=== PATIENT | male | born 1970 | race African-American/Black ===

== ENCOUNTER 2017-07-18 23:11 | Emergency (ER) | payer OTHER ==
[~2017-07-18] VITALS: Ht 182.9 cm; Wt 113.6 kg
[~2017-07-18 23:11] MED LIST: QUET400T PO; QUET400T11 PO
[2017-07-18 23:14] VITALS: Ht 182.9 cm; Wt 113.6 kg
[2017-07-18] MEDS ORDERED: LIDOCAINE/MYLANTA 40 ML BTL PO ONE (23:30)
[2017-07-18] MEDS ORDERED: ACET325T33 PO (23:33)
[2017-07-18] MEDS ORDERED: RANI150T9 PO (23:34)
--- NOTE | 2017-07-18 23:48 | ERD ---
ER Documentation Chief Complaint Date/Time DATE: 07/18/17 TIME: 23:36 Chief Complaint sudden onset lower mid-ap , reports eating something that didn't agree HPI This 47-year-old male comes comes in complaining of midabdominal pain after he ate 2 cheeseburgers and 2 hotdogs. He states that he drank a little Daniel Elías earlier in the day he does not think this combination agrees with him. Denies being intoxicated. States that he wants Dilaudid. He does not have a history of abdominal surgery. He denies nausea vomiting fever and chills. ROS All systems reviewed and are negative except as per history of present illness. Medications Home Meds Active Scripts Ranitidine Hcl* (Zantac*) 150 Mg Tablet, 150 MG PO BID Y for EPIGASTRIC PAIN, # 30 TAB Prov:SOFIA ROMERO DO 07/18/17 Acetaminophen* (Tylenol*) 325 Mg Tablet, 1 TAB PO Q6 Y for PAIN AND OR ELEVATED TEMP, #7 TAB Prov:SOFIA ROMERO DO 07/18/17 Quetiapine Fumarate* (Seroquel*) 400 Mg Tablet, 400 MG PO HS, #20 TAB Prov:FRIEDA COBURN MD 09/08/16 Reported Medications Quetiapine Fumarate* (Quetiapine Fumarate*) 400 Mg Tablet, 400 MG PO BID, TAB 09/04/16 Allergies Allergies: Coded Allergies: No Known Allergy (Unverified , 09/04/16) PMhx/Soc Hx Psychiatric Problems: Yes (Bipolar, Schizophrenia) Hx Alcohol Use: Yes Hx Substance Use: No Hx Tobacco Use: Yes Physical Exam Vitals Vital Signs Date Time Temp Pulse Resp B/P Pulse Ox O2 Delivery O2 Flow Rate FiO2 07/18/17 23:14 99.0 115 22 133/77 97 Physical Exam Const: [] No distress, smiling, pleasant Head: Atraumatic Eyes: Normal Conjunctiva ENT: Normal External Ears, Nose and Mouth. Neck: Full range of motion..~ No meningismus. Resp: Clear to auscultation bilaterally Cardio: Regular Tachycardia, no murmurs Abd: Soft, No tenderness on palpation with stethoscope, when I switched to my hand in the same spot the patient complained of some pain that was mild tenderness but mild and no guarding or rebound,, non distended. Normal bowel sounds Skin: No petechiae or rashes Back: No midline or flank tenderness Ext: No cyanosis, or edema Neur: Awake and alert oriented 3, no focal deficits Psych: Normal Mood and Affect Results 24 hrs Current Medications Medications (Trade) Dose Ordered Sig/Lissette Route PRN Reason Start Time Stop Time Status Last Admin Dose Admin Miscellaneous Medication (Gi Cocktail (2)) 40 ml ONCE ONCE PO 07/18/17 23:30 07/18/17 23:31 DC Procedures/MDM Patient called 911 for indigestion after eating after overeating junk food. Also had drank Tequila early in the day. He has no signs of distress is pleasant and smiling as he states that he needs Dilaudid. He is mildly tachycardic but has no chest pain. Is positive from drinking alcohol being dehydrated. I rechecked his pulse and it was 98 prior to discharge. Seen in his given a GI cocktail which helped reduce his pain. Benign abdominal exam.I still do suspect drug-seeking this patient. The other ER physician on duty states that she has seen this patient several times at different hospital which she was request pain medication through an IV. Departure Diagnosis: Primary Impression: Abdominal pain Additional Impression: Drug-seeking behavior Condition: Stable Patient Instructions: Abdominal Pain Referrals: [facility] YOU HAVE RECEIVED A MEDICAL SCREENING EXAM AND THE RESULTS INDICATE THAT YOU DO NOT HAVE A CONDITION THAT REQUIRES URGENT TREATMENT IN THE EMERGENCY DEPARTMENT. FURTHER EVALUATION AND TREATMENT OF YOUR CONDITION CAN WAIT UNTIL YOU ARE SEEN IN YOUR DOCTORS OFFICE WITHIN THE NEXT 1-2 DAYS. IT IS YOUR RESPONSIBILITY TO MAKE AN APPOINTMENT FOR FOLOW-UP CARE. IF YOU HAVE A PRIMARY DOCTOR --you should call your primary doctor and schedule an appointment IF YOU DO NOT HAVE A PRIMARY DOCTOR YOU CAN CALL OUR PHYSICIAN REFERRAL HOTLINE AT IF YOU CAN NOT AFFORD TO SEE A PHYSICIAN YOU CAN CHOSE FROM THE FOLLOWING [facility] [address] [place] [facility] [address] [facility] [address] [facility] [address] [facility] [address] [facility] [address] Additional Instructions: Call your primary care doctor TOMORROW for an appointment during the next 1-2 days.See the doctor sooner or return here if your condition worsens before your appointment time. SOFIA ROMERO DO Jul 18, 2017 23:47
[2017-07-19 00:41] VITALS: BP 145/79; PULSE 108; RESP 14; TEMP 98.7
== END 2017-07-19 00:43 | disposition home or self-care (01) ==
LOC: E/R 23:11
DX: R10.30 Lower abdominal pain, unspecified (principal); Z76.5 Malingerer [conscious simulation]; Z87.891 Personal history of nicotine dependence
CPT/HCPCS: Z7502; Z7610; 99283

== ENCOUNTER 2017-10-15 23:01 | Emergency (ER) | payer OTHER ==
[~2017-10-15] VITALS: Ht 175.3 cm; Wt 100.0 kg
[~2017-10-15 23:01] MED LIST changes: +ACET325T33 PO; +RANI150T9 PO
[2017-10-15 23:05] VITALS: Ht 175.3 cm; Wt 100.0 kg
--- NOTE | 2017-10-15 23:05 | ERD ---
ER Documentation Chief Complaint Chief Complaint Suicidal ideation HPI The patient is a 46-year-old male, presenting to the ER because of suicidal ideation. He was waiting at the bus stop and did not feel well, he therefore called 911 to bring him to the hospital. He does not have any plan, denies auditory/visual hallucination/homicidal ideation. He is noncompliant with his medication, denies headache, fever, complains of vague abdominal discomfort and vomiting, denied dysuria, diarrhea, constipation. He smokes and drinks, denies illicit drug Past medical history: Bipolar disorder, schizoaffective, Depression, Anxiety, HTN Past surgical history: None ROS All systems reviewed and are negative except as per history of present illness. Medications Home Meds Reported Medications Quetiapine Fumarate* (Quetiapine Fumarate*) 400 Mg Tablet, 400 MG PO BID, TAB 09/04/16 Discontinued Scripts Ranitidine Hcl* (Zantac*) 150 Mg Tablet, 150 MG PO BID Y for EPIGASTRIC PAIN, # 30 TAB Prov:SOFIA ROMERO DO 07/18/17 Acetaminophen* (Tylenol*) 325 Mg Tablet, 1 TAB PO Q6 Y for PAIN AND OR ELEVATED TEMP, #7 TAB Prov:SOFIA ROMERO DO 07/18/17 Quetiapine Fumarate* (Seroquel*) 400 Mg Tablet, 400 MG PO HS, #20 TAB Prov:FRIEDA COBURN MD 09/08/16 Allergies Allergies: Coded Allergies: No Known Allergy (Unverified , 10/15/17) PMhx/Soc History of Surgery: No Anesthesia Reaction: No Hx Neurological Disorder: No Hx Respiratory Disorders: No Hx Cardiac Disorders: No Hx Psychiatric Problems: Yes (Bipolar, Schizophrenia) Hx Miscellaneous Medical Probl: No Hx Alcohol Use: Yes Hx Substance Use: No Hx Tobacco Use: Yes Physical Exam Vitals Vital Signs Date Time Temp Pulse Resp B/P Pulse Ox O2 Delivery O2 Flow Rate FiO2 10/15/17 23:05 98.6 106 18 137/103 100 Physical Exam Const: No acute distress. Head: Atraumatic. Eyes: Normal Conjunctiva. ENT: Normal External Ears, Nose and Mouth. Neck: Full range of motion. No meningismus. Resp: Clear to auscultation bilaterally. Cardio: Regular tachycardic Abd: Soft, non distended, normal bowel sounds, non tender. Skin: No petechiae or rashes. Back: No midline or flank tenderness. Ext: No cyanosis, or edema. Neur: Awake and alert. No focal deficit Psych: Suicidal Result Diagram: 10/15/17231910/15/172319 Results 24 hrs Laboratory Tests Test 10/15/17 23:20 10/16/17 00:40 White Blood Count 8.810^3/ul Red Blood Count 4.6610^6/ul Hemoglobin 14.3g/dl Hematocrit 43.0% Mean Corpuscular Volume 92.3fl Mean Corpuscular Hemoglobin 30.7pg Mean Corpuscular Hemoglobin Concent 33.3g/dl Red Cell Distribution Width 12.8% Platelet Count 10605^3/UL Mean Platelet Volume 10.7fl Neutrophils % 59.7% Lymphocytes % 29.8% Monocytes % 8.5% Eosinophils % 1.5% Basophils % 0.3% Nucleated Red Blood Cells % 0.0/100WBC Neutrophils # 5.310^3/ul Lymphocytes # 2.610^3/ul Monocytes # 0.810^3/ul Eosinophils # 0.110^3/ul Basophils # 0.010^3/ul Nucleated Red Blood Cells # 0.010^3/ul Sodium Level 141mmol/L Potassium Level 3.1mmol/L Chloride Level 103mmol/L Carbon Dioxide Level 20mmol/L Anion Gap 21 Blood Urea Nitrogen 9mg/dl Creatinine 0.95mg/dl Glucose Level 92mg/dl Calcium Level 9.1mg/dl Total Bilirubin 0.3mg/dl Direct Bilirubin 0.00mg/dl Indirect Bilirubin 0.3mg/dl Aspartate Amino Transf (AST/SGOT) 53IU/L Alanine Aminotransferase (ALT/SGPT) 63IU/L Alkaline Phosphatase 117IU/L Troponin I < 0.012ng/ml Total Protein 7.9g/dl Albumin 4.7g/dl Globulin 3.20g/dl Albumin/Globulin Ratio 1.46 Salicylates Level 18.7mg/dl Acetaminophen Level < 10.0ug/ml Ethyl Alcohol Level 186.0mg/dl Urine Color YELLOW Urine Clarity CLEAR Urine pH 5.0 Urine Specific [place] 1.011 Urine Ketones NEGATIVEmg/dL Urine Nitrite NEGATIVEmg/dL Urine Bilirubin NEGATIVEmg/dL Urine Urobilinogen NEGATIVEmg/dL Urine Leukocyte Esterase NEGATIVELeu/ul Urine Hemoglobin NEGATIVEmg/dL Urine Glucose NEGATIVEmg/dL Urine Total Protein NEGATIVEmg/dl Urine Opiates Screen Negative Urine Barbiturates Negative Urine Amphetamines Screen Negative Urine Benzodiazepines Screen Negative Urine Cocaine Screen Negative Urine Cannabinoids Negative Current Medications Medications (Trade) Dose Ordered Sig/Lissette Route PRN Reason Start Time Stop Time Status Last Admin Dose Admin Ondansetron HCl (Zofran Odt) 4 mg ONCE STAT ODT 10/16/17 00:27 10/16/17 00:28 DC 10/16/17 01:15 Ibuprofen (Motrin) 600 mg ONCE ONCE PO 10/16/17 00:30 10/16/17 00:31 DC Potassium Chloride (Klor-Con 20) 40 meq ONCE ONCE PO 10/16/17 00:52 10/16/17 00:53 DC Procedures/MDM EKG: Read by emergency physician Rate/Rhythm: sinus tachy 111 beats/min QRS, ST, T-waves: No ST elevation, no T inversion, LAD, RBBB Impression: Abnormal EKG MEDICAL MAKING DECISION: The patient is a 47-year-old male, presenting with acute suicidal ideation, acute alcohol intoxication, acute hypokalemia. He was treated with Zofran ODT for nausea, Motrin for his discomfort and potassium chloride 40 mEq p.o. for acute hypokalemia with good response. The differential diagnoses considered include but are not limited to psychosis, drug-induced psychosis, alcohol intoxication, medical noncompliance, anxiety attack, panic attack, decompensated psychiatric illness Departure Diagnosis: Primary Impression: Suicidal ideation Additional Impressions: Alcohol abuse Hypokalemia Condition: Stable Comments He was evaluated by the telepsychiatrist Dr. Echevarria who put him on 5150 hold LASHELL SANCHES MD Oct 15, 2017 23:05
[2017-10-16 00:03] LABS: BASOPHILS % 0.3 % (0.0-2.0); EOSINOPHILS # 0.1 10^3/ul (0.0-0.5); EOSINOPHILS % 1.5 % (0.0-7.0); HEMOGLOBIN 14.3 g/dl (14.0-18.0); LYMPHOCYTES # 2.6 10^3/ul (0.8-2.9); LYMPHOCYTES % 29.8 % (15.0-51.0); MEAN CORPUSCULAR HEMOGLOBIN 30.7 pg (29.0-33.0); MEAN CORPUSCULAR HGB CONC 33.3 g/dl (32.0-37.0); MEAN CORPUSCULAR VOLUME 92.3 fl (82.0-101.0); MEAN PLATELET VOLUME 10.7 fl (7.4-10.4); MONOCYTE # 0.8 10^3/ul (0.3-0.9); MONOCYTES % 8.5 % (0.0-11.0); NEUTROPHIL # 5.3 10^3/ul (1.6-7.5); NEUTROPHILS % 59.7 % (39.0-77.0); PLATELET COUNT 275 10^3/UL (140-415); RED BLOOD COUNT 4.66 10^6/ul (4.70-6.10); RED CELL DISTRIBUTION WIDTH 12.8 % (11.5-14.5); WHITE BLOOD COUNT 8.8 10^3/ul (4.8-10.8)
--- NOTE | 2017-10-16 00:11 | RADRPT ---
PROCEDURE: Portable chest x-ray. CLINICAL INDICATION: Chest pain. TECHNIQUE: Portable AP view of the chest. COMPARISON: None. FINDINGS: No pulmonary edema or conolidation is identified. The cardiac silhouette is magnified. No pleural effusion is seen. There is no pneumothorax. IMPRESSION: 1. No evidence of acute cardiopulmonary disease. RPTAT: HTAR .Oseas Ny MD, MD Date Time Electronically viewed and signed by .Oseas Ny MD, on 10/16/2017 00:10 .R/
[2017-10-16] MEDS ORDERED: ONDANSETRON (ODT) 4 MG TAB ODT STA (00:27)
[2017-10-16 00:28] LABS: ALANINE AMINOTRANSFERASE 63 IU/L (13-69); ALBUMIN 4.7 g/dl (3.3-4.9); ALBUMIN/GLOBULIN RATIO 1.46; ALKALINE PHOSPHATASE 117 IU/L (42-121); ANION GAP 21 (8-16); ASPARTATE AMINO TRANSFERASE 53 IU/L (15-46); BILIRUBIN,INDIRECT 0.3 mg/dl (0-1.1); BILIRUBIN,TOTAL 0.3 mg/dl (0.2-1.3); BLOOD UREA NITROGEN 9 mg/dl (7-20); CALCIUM 9.1 mg/dl (8.4-10.2); CARBON DIOXIDE 20 mmol/L (21-31); CHLORIDE 103 mmol/L (97-110); CREATININE 0.95 mg/dl (0.61-1.24); GLUCOSE 92 mg/dl (70-220); POTASSIUM 3.1 mmol/L (3.5-5.1); SALICYLATE 18.7 mg/dl (5.0-30.0); SODIUM 141 mmol/L (135-144); TOTAL PROTEIN 7.9 g/dl (6.1-8.1)
[2017-10-16 00:42] LABS: TROPONIN-I < 0.012 ng/ml (0.00-0.12)
[2017-10-16 00:58] LABS: ACETAMINOPHEN < 10.0 ug/ml (10.0-30.0)
[2017-10-16] MEDS: IBUPROFEN 600 MG TAB PO ONE ×2 (01:15→01:37)
[2017-10-16] MEDS: POTASSIUM CHLORIDE (SR) 20 MEQ TAB PO ONE ×2 (01:15→01:37)
--- NOTE | 2017-10-16 01:17 | PSY ---
Date/Time of Note Date/Time of Note DATE: 10/16/17 TIME: 01:01 Psychiatric Subjective Eval Consent Pt consented to telemedicine: Yes Subjective Evaluation Patient location: emergency Chief Complaint: bib ra 39 for possible stemi, cp, and si History of present illness patient is a 47 yo male with PPH Of bipolar do who came to the ER due to chest pain and suicidal ideation, he says that he wants to jump into traffic, he has a hx of suicidal attempt . Patient states that he has been feeling depressed, hopeless and helpless for more than 2 weeks because his 2 good friends , he has not been able to sleep for days, feeling anxious, and sad all the time, he has been having severe chest pain today with anxiety and so he came to the ER, he denies any current manic or psychotic symptoms but he used to hear voices, he does remember the name of his medication. denies any HI, still feeling suicidal. denies any drug use, but drinking alcohol heavily. Past psychiatric history past suicidal attempt Hospitalization: yes Family History denies Medical history Problems Medical Problems: (1) Abdominal pain Status: Acute (2) Alcoholic intoxication Status: Acute (3) Drug-seeking behavior Status: Acute (4) Long QT interval syndrome Status: Acute (5) Suicidal ideation Status: Acute Allergies: Coded Allergies: No Known Allergy (Unverified , 10/15/17) Substance Abuse Substance abuse history: Yes (alcohol ) Prior substance abuse treatmen: No Social History Marital status: single Level of education: hs DPA/Conservatorship: No Occupation/Alf: no Psychiatric Objective Eval Review of Systems: Review of Systems: Not Applicable Physical Examination: Physical Examination: Applicable Sleep: Insomnia Appetite: Decreased Energy: Decreased Interest: Decreased Mental Status Examination: Appearance: Groomed, Disheveled Eye Contact: Good Psychomotor Activity: Normal Behavior: Cooperative Speech: Clear AFFECT: Depressed Mood: Depressed Though Process: Linear Thought Content: Normal Suicidal: Yes Homicidal: No On 72 hour hold: No Orientation: x3 Cognition: Alert Insight: Impared Judgement: Impared Attention Span: Intact Laboratory Results Laboratory Tests Test 10/15/17 23:20 White Blood Count 8.810^3/ul Red Blood Count 4.6610^6/ul Hemoglobin 14.3g/dl Hematocrit 43.0% Mean Corpuscular Volume 92.3fl Mean Corpuscular Hemoglobin 30.7pg Mean Corpuscular Hemoglobin Concent 33.3g/dl Red Cell Distribution Width 12.8% Platelet Count 77646^3/UL Mean Platelet Volume 10.7fl Neutrophils % 59.7% Lymphocytes % 29.8% Monocytes % 8.5% Eosinophils % 1.5% Basophils % 0.3% Nucleated Red Blood Cells % 0.0/100WBC Neutrophils # 5.310^3/ul Lymphocytes # 2.610^3/ul Monocytes # 0.810^3/ul Eosinophils # 0.110^3/ul Basophils # 0.010^3/ul Nucleated Red Blood Cells # 0.010^3/ul Sodium Level 141mmol/L Potassium Level 3.1mmol/L Chloride Level 103mmol/L Carbon Dioxide Level 20mmol/L Anion Gap 21 Blood Urea Nitrogen 9mg/dl Creatinine 0.95mg/dl Glucose Level 92mg/dl Calcium Level 9.1mg/dl Total Bilirubin 0.3mg/dl Direct Bilirubin 0.00mg/dl Indirect Bilirubin 0.3mg/dl Aspartate Amino Transf (AST/SGOT) 53IU/L Alanine Aminotransferase (ALT/SGPT) 63IU/L Alkaline Phosphatase 117IU/L Troponin I < 0.012ng/ml Total Protein 7.9g/dl Albumin 4.7g/dl Globulin 3.20g/dl Albumin/Globulin Ratio 1.46 Salicylates Level 18.7mg/dl Acetaminophen Level < 10.0ug/ml Ethyl Alcohol Level 186.0mg/dl Assessment and Plan Assessment/Diagnosis [place] I: bipolar do current episode depressed severe without psychotic symptoms r.o alcohol abuse [place] II: deferred [place] III: chest pain [place] IV: poor social support [place] V: gaf 25 Recommendation/Plan Medication Management ativan 1 mg po tid Follow-up/Disposition Please admit patient on unvoluntary status due to Danger to self, In my opinion, patient currently MEETS criterion for inpatient care and CANNOT be safely treated ~at a lower level of care today as evidenced by the following risk factors: ~Current and Recent Suicidal Ideation Previous suicide attempt and~ severe self-destructive behavior Intense feelings of hopelessness and lack of future orientation. Significant recent DETERIORATION in function, behavior and thought processes Substance ABUSE in conjunction with another psychiatric disorder Non-Compliance with Outpatient Treatment Patient has failed outpatient and requires further inpatient assessment Medication changes require observation unavailable at a lower level of care. 5150 Recommendation: JOSSY Torres MD Oct 16, 2017 01:13
[2017-10-16 01:45] LABS: ADD UMIC NO; UR ASCORBIC ACID NEGATIVE (NEGATIVE); UR BILIRUBIN (Dip) NEGATIVE (NEGATIVE); UR BLOOD (Dip) NEGATIVE (NEGATIVE); UR CLARITY CLEAR (CLEAR); UR COLOR YELLOW (YELLOW); UR GLUCOSE (Dip) NEGATIVE (NEGATIVE); UR KETONES (Dip) NEGATIVE (NEGATIVE); UR LEUKOCYTE ESTERASE (Dip) NEGATIVE Leu/ul (NEGATIVE); UR NITRITE (Dip) NEGATIVE (NEGATIVE); UR SPECIFIC GRAVITY (Dip) 1.011 (1.003-1.030); UR TOTAL PROTEIN (Dip) NEGATIVE (NEGATIVE); UR UROBILINOGEN (Dip) NEGATIVE (NEGATIVE)
[2017-10-16 02:09] LABS: BARBITURATES Negative (NEGATIVE); BENZODIAZEPINES Negative (NEGATIVE); CANNABINOIDS Negative (NEGATIVE); COCAINE Negative (NEGATIVE); OPIATES Negative (NEGATIVE)
[2017-10-16] MEDS ORDERED: HYDROCODONE/APAP (10/325) TAB PO ONE (07:00)
[2017-10-16 08:16] VITALS: BP 154/91; PULSE 91; RESP 17; TEMP 98.1
== END 2017-10-16 09:05 ==
LOC: E/R 23:01
DX: R45.851 Suicidal ideations (principal); F10.10 Alcohol abuse, uncomplicated; E87.6 Hypokalemia; R07.9 Chest pain, unspecified
CPT/HCPCS: 36415; 71010; 80053; 80306; 80307; 81003; 84484; 85025; 93005; Z7502; Z7610

== ENCOUNTER 2018-07-18 03:47 | Emergency (ER) | END 2018-07-18 11:22 | disposition short-term general hospital (02) ==

== ENCOUNTER 2019-02-01 20:28 | Emergency (ER) | payer OTHER ==
[~2019-02-01] VITALS: Ht 177.8 cm; Wt 80.0 kg
[~2019-02-01 20:28] MED LIST changes: -ACET325T33 PO; +FAMO-96 PO; +ONDA4TAB14 PO; -QUET400T PO; -RANI150T9 PO
[2019-02-01 20:31] VITALS: Ht 177.8 cm; Wt 80.0 kg
[2019-02-01] MEDS ORDERED: LACTATED RINGER'S 1,000 ML IV STA (22:40)
[2019-02-01] MEDS ORDERED: morphine 4 MG/ML VIAL IV STA (22:40)
[2019-02-01] MEDS ORDERED: ONDANSETRON 4 MG INJ IV STA (22:40)
--- NOTE | 2019-02-02 01:01 | ERD ---
ER Documentation Chief Complaint Chief Complaint AP x 2 days, ETOH HPI This is a very pleasant 48-year-old male with abdominal pain for 2 days. He says been drinking for the past 2-3 days. Denies any fevers or chills. Denies any other current issues. Pain is mild in intensity epigastric in location. ROS All systems reviewed and are negative except as per history of present illness. Medications Home Meds Active Scripts Ondansetron (Ondansetron Odt) 4 Mg Tab.rapdis, 4 MG PO Q6H PRN for NAUSEA AND/OR VOMITING, #10 TAB Prov:SAPPHIRE BLUM MD 07/18/18 Famotidine* (Pepcid*) 20 Mg Tablet, 20 MG PO BID for 10 Days, TAB Prov:SAPPHIRE BLUM MD 07/18/18 Reported Medications Quetiapine Fumarate* (Quetiapine Fumarate*) 400 Mg Tablet, 400 MG PO BID, TAB 09/04/16 Allergies Allergies: Coded Allergies: No Known Allergy (Unverified , 10/15/17) PMhx/Soc Medical and Surgical Hx: Unable to obtain History of Surgery: Yes (NECK SX) Anesthesia Reaction: No Hx Neurological Disorder: No Hx Respiratory Disorders: No Hx Cardiac Disorders: No Hx Psychiatric Problems: Yes (Bipolar, Schizophrenia) Hx Miscellaneous Medical Probl: No Hx Alcohol Use: No Hx Substance Use: Yes Hx Tobacco Use: No Smoking Status: Unknown if ever smoked Physical Exam Vitals Vital Signs Date Temp Pulse Resp B/P (MAP) Pulse Ox O2 O2 Flow FiO2 Time Delivery Rate 02/01/19 98.3 80 16 140/90 100 20:31 (107) Physical Exam Const: No acute distress Head: Atraumatic Eyes: Normal Conjunctiva ENT: Normal External Ears, Nose and Mouth. Neck: Full range of motion. No meningismus. Resp: Clear to auscultation bilaterally Cardio: Regular rate and rhythm, no murmurs Abd: Soft, non tender, non distended. Normal bowel sounds Skin: No petechiae or rashes Back: No midline or flank tenderness Ext: No cyanosis, or edema Neur: Awake and alert Psych: Normal Mood and Affect Result Diagram: 02/01/19 5760 02/01/19 5376 Results 24 hrs Laboratory Tests Test 02/01/19 23:03 02/01/19 23:59 White Blood Count 4.3 10^3/ul Red Blood Count 4.40 10^6/ul Hemoglobin 13.5 g/dl Hematocrit 42.1 % Mean Corpuscular Volume 95.7 fl Mean Corpuscular Hemoglobin 30.7 pg Mean Corpuscular Hemoglobin Concent 32.1 g/dl Red Cell Distribution Width 13.3 % Platelet Count 288 10^3/UL Mean Platelet Volume 10.3 fl Immature Granulocytes % 0.200 % Neutrophils % 32.5 % Lymphocytes % 56.6 % Monocytes % 7.7 % Eosinophils % 2.3 % Basophils % 0.7 % Nucleated Red Blood Cells % 0.0 /100WBC Immature Granulocytes # 0.010 10^3/ul Neutrophils # 1.4 10^3/ul Lymphocytes # 2.4 10^3/ul Monocytes # 0.3 10^3/ul Eosinophils # 0.1 10^3/ul Basophils # 0.0 10^3/ul Nucleated Red Blood Cells # 0.0 10^3/ul Sodium Level 149 mmol/L Potassium Level 4.4 mmol/L Chloride Level 108 mmol/L Carbon Dioxide Level 26 mmol/L Anion Gap 15 Blood Urea Nitrogen 11 mg/dl Creatinine 0.75 mg/dl Est Glomerular Filtrat Rate mL/min > 60 mL/min Glucose Level 75 mg/dl Calcium Level 9.1 mg/dl Total Bilirubin 0.2 mg/dl Direct Bilirubin 0.00 mg/dl Indirect Bilirubin 0.2 mg/dl Aspartate Amino Transf (AST/SGOT) 57 IU/L Alanine Aminotransferase (ALT/SGPT) 31 IU/L Alkaline Phosphatase 99 IU/L Total Protein 7.8 g/dl Albumin 4.5 g/dl Globulin 3.30 g/dl Albumin/Globulin Ratio 1.36 Lipase 232 U/L Ethyl Alcohol Level 370.0 mg/dl Current Medications Medications Dose Sig/Lissette Start Time Status Last (Trade) Ordered Route PRN Stop Time Admin Dose Reason Admin Lactated 1,000 ml @ Q1H STAT 02/01/19 DC 02/01/19 Ringer's 1,000 mls/hr IV 22:40 23:14 02/01/19 23:39 Morphine 4 mg ONCE STAT 02/01/19 DC 02/01/19 Sulfate IV 22:40 23:15 (morphine) 02/01/19 22:42 Ondansetron 4 mg ONCE STAT 02/01/19 DC 02/01/19 HCl (Zofran IV 22:40 23:14 Inj) 02/01/19 22:42 Procedures/MDM Emergency department course: Patient seen and evaluated triage nurse. Had intravenous access. Had blood work done. Given fluid bolus. Diagnostic data: Chest X-ray 1V Interpreted by me: Soft Tissue: No acute abnormalities Bones: No acute abnormalities Mediastinum/Cardiac Silhouette/Lungs: [No acute abnormalities] Medical decision making: This is a 48-year-old male who comes in essentially for epigastric pain post alcohol binge. At this point is clinically stable for outpatient management. Patient will be discharged home. Follow-up with PCP. Return for worsening symptoms. Departure Diagnosis: Primary Impression: Abdominal pain Abdominal location: epigastric Qualified Codes: R10.13 - Epigastric pain Condition: Stable Patient Instructions: Alcohol Abuse KAMALJIT WILL Feb 02, 2019 01:01
[2019-02-02 03:22] VITALS: BP 128/63; PULSE 69; RESP 18
== END 2019-02-02 03:23 | disposition home or self-care (01) ==
LOC: E/R 20:28
DX: R10.13 Epigastric pain (principal); R40.2142 Coma scale, eyes open, spontaneous, at arrival to emergency department; R40.2252 Coma scale, best verbal response, oriented, at arrival to emergency department; R40.2362 Coma scale, best motor response, obeys commands, at arrival to emergency department
CPT/HCPCS: 36415; 71045; 74176; 80053; 80307; 83690; 85025; 96374; 96375; J2270; J2405; J7120; Z7502; Z7610

== ENCOUNTER 2019-07-05 22:08 | Emergency (ER) | payer SELFPAY ==
[~2019-07-05] VITALS: Ht 185.4 cm; Wt 131.4 kg
[2019-07-05 22:22] VITALS: BP 106/61; PULSE 105; RESP 19; Ht 185.4 cm; Wt 131.4 kg
== END 2019-07-05 22:11 | disposition left against medical advice (07) ==
LOC: E/R 22:08
DX: Z53.21 Procedure and treatment not carried out due to patient leaving prior to being seen by health care provider (principal)